=== PATIENT | female | born 1965 | race Caucasian/White ===

== ENCOUNTER 2018-09-07 17:43 | Emergency (ER) | payer OTHER ==
[2018-09-07] MEDS ORDERED: FAMOTIDINE 20 MG/50 ML IVPB 20 MG/50 ML MG IVPB ONE ×2 (18:19→19:35)
[2018-09-07] MEDS ORDERED: SODIUM CHLORIDE 1,000 ML IV STA (18:19)
[2018-09-07] MEDS ORDERED: ONDANSETRON 4 MG/2 ML VIAL IVPUSH ONE (18:19)
--- NOTE | 2018-09-07 18:19 | PDOC ---
Rapid Medical Evaluation Medical Evaluation: Allergies Allergy/AdvReac Type Severity Reaction Status Date / Time No Known Allergies Allergy Verified 09/18/15 08:22 I have performed a brief in-person evaluation of this patient. The patient presents with a chief complaint of: C/o emesis and upper abdominal pain from last night; denies cp, sob, diarrhea Pertinent physical exam findings: In NAD, mild epigastric tenderness I have ordered the following: Labs, meds The patient will proceed to the ED for further evaluation. 09/07/18 18:17
[2018-09-07 18:20] VITALS: BP 152/75; PULSE 64; TEMP 98.3; BMI 26.1
[2018-09-07 19:34] LABS: BASO % 0.5 % (0-2.0); EOS % 0.2 % (0-4.5); HEMATOCRIT 37.3 % (32.4-45.2); HEMOGLOBIN 12.7 GM/dL (10.7-15.3); MCH 29.6 pg (25.7-33.7); MEAN CELL VOLUME 87.2 fl (80-96); MEAN PLT VOLUME 9.8 fl (7.5-11.1); MONO % 3.9 % (3.8-10.2); NEUT % 81.4 % (42.8-82.8); PLATELET COUNT 233 K/MM3 (134-434); RBC 4.28 M/mm3 (3.60-5.2); RDW 13.5 % (11.6-15.6); WHITE BLOOD COUNT 7.3 K/mm3 (4.0-10.0)
[2018-09-07] MEDS ORDERED: ONDANSETRON 4 MG/2 ML VIAL ONE (19:34)
[2018-09-07] MEDS ORDERED: ACETAMINOPHEN INJECTION 100 ML IVPB ONE (19:34)
--- NOTE | 2018-09-07 19:44 | PDOC ---
*Physical Exam - Vital Signs Last Vital Signs Temp Pulse Resp BP Pulse Ox 98.3 F 64 18 152/75 100 09/07/18 18:17 09/07/18 18:17 09/07/18 18:17 09/07/18 18:17 09/07/18 18:17 ED Treatment Course - LABORATORY CBC & Chemistry Diagram: 09/07/18 18:56 09/07/18 18:59 Medical Decision Making - Medical Decision Making 09/07/18 19:43 Patient seen by the advanced practice provider under my direct supervision. Ancillary testing reviewed as necessary. I agree with plan as outlined by the advanced practice provider. *DC/Admit/Observation/Transfer Diagnosis at time of Disposition: Headache - Discharge Dispostion Disposition: HOME Condition at time of disposition: Improved - Prescriptions Prescriptions: Ondansetron HCl [Zofran] 4 mg PO TID PRN #12 tablet PRN Reason: Nausea And/Or Vomiting - Referrals - Patient Instructions Printed Discharge Instructions: DI for Nausea -- Adult, DI for Headache Additional Instructions: Take Tylenol 975 mg every 6-8 hours for adequate headache control. Please take Zofran as needed for nausea. Drink plenty of fluids and eat well-balanced foods - Post Discharge Activity Forms/Work/School Notes: Back to Work
--- NOTE | 2018-09-07 20:26 | PDOC ---
History of Present Illness - General Chief Complaint: Nausea/Vomiting Stated Complaint: VOMITING/HEADACHE Time Seen by Provider: 09/07/18 18:16 History Source: Patient Exam Limitations: No Limitations - History of Present Illness Initial Comments: 09/07/18 20:22 53-year-old female presents to ED with complaints of headache upper abdominal pain and nausea . 2 days. Patient states headache is in her frontal area which she describes a throbbing pressure which is consistent with her previous history of headaches which she takes Tylenol for. Patient states did not take anything for the above secondary to nausea and decided come to the ER today with symptoms continue Timing/Duration: other Severity: moderate Associated Symptoms: reports: headaches, nausea/vomiting. denies: fever/chills , weakness Past History - Travel Traveled outside of the country in the last 30 days: No Close contact w/someone who was outside of country & ill: No - Past Medical History Allergies/Adverse Reactions: Allergies Allergy/AdvReac Type Severity Reaction Status Date / Time No Known Allergies Allergy Verified 09/18/15 08:22 Home Medications: Ambulatory Orders Ondansetron HCl [Zofran] 4 mg PO TID PRN #12 tablet 09/07/18 COPD: No Thyroid Disease: Yes - Surgical History Cholecystectomy: No Lung Surgery: No - Immunization History Immunization Up to Date: No - Suicide/Smoking/Psychosocial Hx Smoking History: Never smoked Have you smoked in the past 12 months: No Information on smoking cessation initiated: No Hx Alcohol Use: No Drug/Substance Use Hx: No Substance Use Type: None Patient Lives Alone: No Lives with/in: spouse/SO Review of Systems - Review of Systems Able to Perform ROS?: No Is the patient limited Nepali proficient: No Constitutional: No: Symptoms Reported HEENTM: No: Symptoms Reported Respiratory: No: Symptoms reported Cardiac (ROS): No: Symptoms Reported ABD/GI: Yes: Nausea, Abdominal cramping. No: Constipated, Diarrhea, Vomiting : No: Symptoms Reported Musculoskeletal: No: Symptoms Reported Integumentary: No: Symptoms Reported Neurological: Yes: Headache. No: Weakness, Dizziness Hematologic/Lymphatic: No: Symptoms Reported *Physical Exam - Vital Signs Last Vital Signs Temp Pulse Resp BP Pulse Ox 98.3 F 64 18 152/75 100 09/07/18 18:17 09/07/18 18:17 09/07/18 18:17 09/07/18 18:17 09/07/18 18:17 - Physical Exam General Appearance: Yes: Nourished, Appropriately Dressed. No: Apparent Distress HEENT: positive: EOMI, MARS, TMs Normal, Pharynx Normal. negative: Pale Conjunctivae Neck: positive: Supple Respiratory/Chest: positive: Lungs Clear, Normal Breath Sounds. negative: Respiratory Distress, Accessory Muscle Use Cardiovascular: positive: Regular Rhythm, Regular Rate. negative: Murmur Gastrointestinal/Abdominal: positive: Soft. negative: Tenderness Extremity: positive: Normal Inspection Integumentary: positive: Normal Color, Warm, Moist Neurologic: positive: Motor Strength 5/5 (ambulatory) Moderate Sedation - Procedure Monitoring Vital Signs: Procedure Monitoring Vital Signs Temperature 98.3 F 09/07/18 18:17 Pulse Rate 64 09/07/18 18:17 Respiratory Rate 18 09/07/18 18:17 Blood Pressure 152/75 09/07/18 18:17 O2 Sat by Pulse Oximetry (%) 100 09/07/18 18:17 ED Treatment Course - LABORATORY CBC & Chemistry Diagram: 09/07/18 18:56 09/07/18 18:59 - ADDITIONAL ORDERS Additional order review: 09/07/18 18:56 RBC 4.28 MCV 87.2 MCHC 34.0 RDW 13.5 MPV 9.8 Neutrophils % 81.4 Lymphocytes % 14.0 Monocytes % 3.9 Eosinophils % 0.2 Basophils % 0.5 - Medications Given in the ED: ED Medications Discontinued Medications Generic Name Dose Route Start Last Admin Trade Name Freq PRN Reason Stop Dose Admin Famotidine/Sodium Chloride 20 mg in 50 mls @ 100 mls/hr 09/07/18 18:19 19:53 Pepcid 20 Mg Premixed Ivpb - IVPB 09/07/18 18:48 100 mls/hr ONCE ONE Administration Sodium Chloride 1,000 mls @ 1,000 mls/hr 09/07/18 18:19 09/07/18 19:53 Normal Saline - IV 09/07/18 19:18 1,000 mls/hr ASDIR STA Administration Ondansetron HCl 4 mg 09/07/18 18:19 09/07/18 19:53 Zofran Injection IVPUSH 09/07/18 18:20 4 mg ONCE ONE Administration Medical Decision Making - Medical Decision Making 09/07/18 20:00 Complaint: Headache associated nausea and upper. Patient has no other complaints including fever chills or urinary complaints. Patient states symptoms began 3 days ago. Exam: No acute findings. Vital signs stable. Plan: Labs, urine, IV fluids, IV Tylenol and Zofran ordered along with Pepcid 09/07/18 20:26 Laboratory Tests 09/07/18 18:56 WBC 7.3 Hgb 12.7 Hct 37.3 Absolute Neuts (auto) 5.9 Neutrophils % 81.4 09/07/18 21:20 Laboratory Tests 09/07/18 21:01 Urine Ketones Trace H Urine Nitrite Negative Ur Leukocyte Esterase Trace Urine WBC (Auto) Pending Urine RBC (Auto) Pending Laboratory Tests 09/07/18 18:59 Sodium 141 Potassium 4.6 Chloride 105 Carbon Dioxide 28 Anion Gap 8 BUN 19 H Creatinine 0.9 Random Glucose 99 Calcium 9.7 Total Bilirubin 0.5 AST 21 ALT 11 L Alkaline Phosphatase 85 Total Protein 8.3 H Albumin 4.2 Lipase 116 Feeling much better. Patient has no complaints presently. Will discharge patient home with Zofran with recommendations to take Tylenol for headache. *DC/Admit/Observation/Transfer Diagnosis at time of Disposition: Headache - Discharge Dispostion Disposition: HOME Condition at time of disposition: Improved - Prescriptions Prescriptions: Ondansetron HCl [Zofran] 4 mg PO TID PRN #12 tablet PRN Reason: Nausea And/Or Vomiting - Referrals - Patient Instructions Printed Discharge Instructions: DI for Nausea -- Adult, DI for Headache Additional Instructions: Take Tylenol 975 mg every 6-8 hours for adequate headache control. Please take Zofran as needed for nausea. Drink plenty of fluids and eat well-balanced foods - Post Discharge Activity Forms/Work/School Notes: Back to Work
[2018-09-07 20:32] LABS: ALBUMIN 4.2 g/dl (3.4-5.0); ALK PHOS 85 U/L (45-117); ANION GAP 8 MMOL/L (8-16); BILIRUBIN,TOTAL 0.5 mg/dL (0.2-1); BLOOD UREA NITROGEN 19 mg/dL (7-18); CALCIUM 9.7 mg/dL (8.5-10.1); CHLORIDE 105 mmol/L (98-107); CO2 28 mmol/L (21-32); CREATININE 0.9 mg/dL (0.55-1.3); GLUCOSE,RANDOM 99 mg/dL (74-106); LIPASE 116 U/L (73-393); POTASSIUM 4.6 mmol/L (3.5-5.1); SGOT/AST 21 U/L (15-37); SGPT/ALT 11 U/L (13-61); SODIUM 141 mmol/L (136-145); TOT PROT 8.3 g/dl (6.4-8.2)
[2018-09-07 21:13] LABS: URINE APPEARANCE CLEAR; URINE BILIRUBIN NEGATIVE (<2.0 mg/dL); URINE COLOR YELLOW; URINE GLUCOSE (UA) NEGATIVE (NEGATIVE); URINE KETONE TRACE (NEGATIVE); URINE LEUK ESTERASE TRACE (NEGATIVE); URINE NITRITE NEGATIVE (NEGATIVE); URINE PROTEIN NEGATIVE (NEGATIVE); URINE UROBILINOGEN NEGATIVE mg/dL (0.2-1.0)
[2018-09-07 21:21] LABS: EPI CELLS RARE /HPF (FEW); URINE MUCUS MODERATE
== END 2018-09-07 22:11 | disposition home or self-care (01) ==
LOC: JER 17:43
PROC: 3E033GC Introduction of Other Therapeutic Substance into Peripheral Vein, Percutaneous Approach (ICD-10-PCS; principal; 2018-09-07)
PROC: 3E033GC Introduction of Other Therapeutic Substance into Peripheral Vein, Percutaneous Approach (ICD-10-PCS; 2018-09-07)
DX: R51 Headache (principal)
CPT/HCPCS: 36415; 80053; 81003; 81015; 83690; 85025; 99281-25; J7030

== ENCOUNTER 2019-08-18 19:22 | Emergency (ER) | payer OTHER ==
[2019-08-18 19:34] VITALS: BMI 25.5
--- NOTE | 2019-08-18 19:39 | PDOC ---
Rapid Medical Evaluation Chief Complaint: Headache Time Seen by Provider: 08/18/19 19:31 Medical Evaluation: Allergies Allergy/AdvReac Type Severity Reaction Status Date / Time No Known Allergies Allergy Verified 09/18/15 08:22 Vital Signs Temp Pulse Resp BP Pulse Ox 97.8 F 74 18 135/74 99 08/18/19 19:31 08/18/19 19:31 08/18/19 19:31 08/18/19 19:31 08/18/19 19:31 08/18/19 19:37 I have performed a brief in-person evaluation of this patient. The patient presents with a chief complaint of:headche- frontal, nausea, malaise Pertinent physical exam findings: pale/ I have ordered the following: nothing The patient will proceed to the ED for further evaluation. Discharge Disposition - Diagnosis Headache - Discharge Dispostion Condition at time of disposition: Stable - Referrals - Patient Instructions - Post Discharge Activity
[2019-08-18] MEDS ORDERED: METOCLOPRAMIDE HCL INJECTION 10 MG/2 ML VIAL IVPUSH ONE (20:13)
[2019-08-18] MEDS ORDERED: KETOROLAC TROMETHAMINE 30 MG/1 ML VIAL IVPUSH ONE (20:13)
[2019-08-18] MEDS ORDERED: SODIUM CHLORIDE 1,000 ML IV STA (20:13)
--- NOTE | 2019-08-18 20:14 | PDOC ---
History of Present Illness - General Chief Complaint: Headache Stated Complaint: HEADACHE/VOMITING Time Seen by Provider: 08/18/19 19:31 History Source: Patient, Old Records Exam Limitations: No Limitations - History of Present Illness Initial Comments: 08/18/19 20:14 HISTORY OF PRESENT ILLNESS: 54-year-old woman past history of headaches presents to the emergency department for evaluation of frontal headache starting today. She also reports having some mild nausea but denies any vomiting. Patient reports her pain at 7/10 is unable to identify any aggravating or alleviating factors. Patient is unable to describe her pain. She denies any dizziness, blurry vision, phonophobia or head trauma. Patient denies having any fevers or sick contacts. No recent travel or sick contacts. PAST MEDICAL HISTORY: Denies past medical history SURGICAL HISTORY: Denies ALLERGIES: No known drug allergies REVIEW OF SYSTEMS General/Constitutional: Denies fever or chills. Denies weakness, weight change. HEENT: Denies change in vision. Denies ear pain or discharge. Denies sore throat. Cardiovascular: Denies chest pain or shortness of breath. Respiratory: Denies cough, wheezing, or hemoptysis. Gastrointestinal: Denies nausea, vomiting, diarrhea or constipation. Denies rectal bleeding. Genitourinary: Denies dysuria, frequency, or change in urination. Musculoskeletal: Denies joint or muscle swelling or pain. Denies neck or back pain. Skin and breasts: Denies rash or easy bruising. Neurologic: See HPI Psychiatric: Denies depression or anxiety. Endocrine: Denies increased thirst. Denies abnormal weight change. Hematologic/Lymphatic: Denies anemia, easy bleeding, or history of blood clots. Allergic/Immunologic: Denies hives or skin allergy. Denies latex allergy. PHYSICAL EXAM General Appearance: Well-appearing, appropriately dressed. No apparent distress , no intoxication. HEENT: EOMI, PERRLA, normal ENT inspection, normal voice, TMs normal, pharynx normal. No conjunctival pallor. No photophobia, scleral icterus. Neck: Supple. Trachea midline. No tenderness, rigidity, carotid bruit, stridor , lymphadenopathy, or thyromegaly. Respiratory/Chest: Lungs CTAB. No shortness of breath, chest tenderness, respiratory distress, accessory muscle use. No crackles, rales, rhonchi, stridor , wheezing, dullness Cardiovascular: RRR. S1, S2. No JVD, murmur, bradycardia, tachycardia. Vascular Pulses: Dorsalis-Pedis (R): 2+, Dorsalis-Pedis (L): 2+ Gastrointestinal/Abdominal: Normal bowel sounds. Abdomen soft, non-distended. No tenderness or rebound tenderness. No organomegaly, pulsatile mass, guarding, hernia, hepatomegaly, splenomegaly. Integumentary: Appropriate color, dry, warm. No cyanosis, erythema, jaundice or rash Neurologic: neighborhood conservation officer II-XII intact. Fully oriented, alert. Appropriate mood/affect. Motor strength 5/5. No appreciable EOM palsy, facial droop or sensory deficit. Gait is steady. Able to perform rapid alternating movements without difficulty. Past History - Past Medical History Allergies/Adverse Reactions: Allergies Allergy/AdvReac Type Severity Reaction Status Date / Time No Known Allergies Allergy Verified 08/18/19 21:13 Home Medications: Ambulatory Orders NK [No Known Home Medication] 08/18/19 COPD: No Thyroid Disease: Yes - Surgical History Cholecystectomy: No Lung Surgery: No - Immunization History Immunization Up to Date: No - Psycho Social/Smoking Cessation Hx Smoking History: Never smoked Have you smoked in the past 12 months: No Information on smoking cessation initiated: No Hx Alcohol Use: No Drug/Substance Use Hx: No Substance Use Type: None *Physical Exam - Vital Signs Last Vital Signs Temp Pulse Resp BP Pulse Ox 97.8 F 74 18 135/74 99 08/18/19 19:31 08/18/19 19:31 08/18/19 19:31 08/18/19 19:31 08/18/19 19:31 Medical Decision Making - Medical Decision Making 08/18/19 20:19 A/P: 54-year-old woman with frontal headache consistent with her usual headache pattern Normal saline 1 L IV bolus Reglan 10 mg IV push Benadryl 25 mg IV push Toradol 30 mg IV push Reassess-low threshold to image if medication does not improve her symptoms. 08/18/19 21:53 Patient is currently pain-free and is requesting discharge. Discharge home with referral for neurology for continued evaluation of her headaches. I discussed the physical exam findings, ancillary test results and final diagnoses with the patient. I answered all of the patient's questions. The patient was satisfied with the care received and felt comfortable with the discharge plan and treatment plan. The patient will call their primary care physician within 24 hours to arrange follow-up and will return to the Emergency Department with any new, persistent or worsening symptoms. Discharge - Discharge Information Problems reviewed: Yes Clinical Impression/Diagnosis: Headache Qualifiers: Headache type: unspecified Headache chronicity pattern: acute headache Intractability: not intractable Qualified Code(s): R51 - Headache Condition: Stable Disposition: HOME - Admission No - Follow up/Referral Referrals: Michelle Sigala [Primary Care Provider] - Oksana Franco MD [Staff Physician] - - Patient Discharge Instructions Additional Instructions: Take Tylenol or Motrin as needed for headaches. Keep a diary of all food to eat and activities performed prior to headaches starting. Make an appointment with her primary doctor for reevaluation within the next week. Return to emergency department for worsening headache, blurry vision, dizziness , nausea, vomiting or any other concerns. Thank you very much for for choosing us to provide emergent health care needs. - Post Discharge Activity
[2019-08-18] MEDS ORDERED: KETOROLAC TROMETHAMINE 30 MG/1 ML VIAL ONE (20:46)
[2019-08-18] MEDS ORDERED: METOCLOPRAMIDE HCL INJECTION 10 MG/2 ML VIAL ONE (20:46)
[2019-08-18 22:28] VITALS: BP 123/73; PULSE 68; TEMP 97.9
== END 2019-08-18 22:25 | disposition home or self-care (01) ==
LOC: JER 19:22
PROC: 3E033GC Introduction of Other Therapeutic Substance into Peripheral Vein, Percutaneous Approach (ICD-10-PCS; principal; 2019-08-18)
PROC: 3E033GC Introduction of Other Therapeutic Substance into Peripheral Vein, Percutaneous Approach (ICD-10-PCS; 2019-08-18)
PROC: 3E0333Z Introduction of Anti-inflammatory into Peripheral Vein, Percutaneous Approach (ICD-10-PCS; 2019-08-18)
DX: R51 Headache (principal); E07.9 Disorder of thyroid, unspecified
CPT/HCPCS: 99283-25; J7030

== ENCOUNTER 2024-05-03 00:23 | Emergency (ER) | payer OTHER ==
[2024-05-03 00:49] VITALS: BP 149/75; PULSE 62; RESP 20; TEMP 98.8; BMI 28.3
[2024-05-03] MEDS ORDERED: FAMOTIDINE 20 MG/50 ML IVPB 20 MG/50 ML MG IVPB ONE (01:14)
[2024-05-03] MEDS: FAMOTIDINE 20 MG/50 ML IVPB 20 MG/50 ML MG IVPB ONE (01:30)
[2024-05-03] MEDS ORDERED: ACETAMINOPHEN 325 MG TABLET (FP) ONE (02:39)
== END 2024-05-03 02:36 | disposition home or self-care (01) ==
LOC: JER 00:23
PROC: 3E033GC Introduction of Other Therapeutic Substance into Peripheral Vein, Percutaneous Approach (ICD-10-PCS; principal; 2024-05-03)
PROC: 3E033GC Introduction of Other Therapeutic Substance into Peripheral Vein, Percutaneous Approach (ICD-10-PCS; 2024-05-03)
DX: R21 Rash and other nonspecific skin eruption (principal); R22.0 Localized swelling, mass and lump, head; T78.1XXA Other adverse food reactions, not elsewhere classified, initial encounter
CPT/HCPCS: 99284-25